=== PATIENT | female | born 1955 | race Caucasian/White ===

== ENCOUNTER 2019-07-11 14:34 | Emergency (ER) | payer MEDICAID ==
[~2019-07-11] VITALS: Ht 157.5 cm; Wt 95.7 kg
[2019-07-11 14:44] VITALS: Ht 157.5 cm; Wt 95.7 kg
[2019-07-11 15:33] VITALS: BP 173/75
== END 2019-07-11 19:00 | disposition home or self-care (01) ==
LOC: ED 14:34
DX: M54.16 Radiculopathy, lumbar region (principal); I10 Essential (primary) hypertension; E11.9 Type 2 diabetes mellitus without complications
CPT/HCPCS: J1885

== ENCOUNTER 2019-07-19 18:27 | Emergency (ER) | payer MEDICAID ==
[~2019-07-19] VITALS: Ht 157.5 cm; Wt 95.3 kg
[2019-07-19 19:14] VITALS: Ht 157.5 cm; Wt 95.3 kg
[2019-07-19 20:59] VITALS: BP 129/67
== END 2019-07-19 20:59 | disposition home or self-care (01) ==
LOC: ED 18:27
DX: S80.01XA Contusion of right knee, initial encounter (principal); S50.811A Abrasion of right forearm, initial encounter; I10 Essential (primary) hypertension; E11.9 Type 2 diabetes mellitus without complications; W01.0XXA Fall on same level from slipping, tripping and stumbling without subsequent striking against object, initial encounter; Y93.89 Activity, other specified; Y92.89 Other specified places as the place of occurrence of the external cause; Y99.8 Other external cause status
CPT/HCPCS: J1885; Q0092